=== PATIENT | male | born 1955 | race Caucasian/White ===

== ENCOUNTER 2019-09-09 12:56 | Inpatient (IN) | payer SELFPAY ==
[~2019-09-09] VITALS: Ht 188 cm; Wt 87.5 kg
[2019-09-09] MEDS ORDERED: CEPH500C PO (13:06)
[2019-09-09] MEDS ORDERED: MUPI2OI TOP (13:06)
--- NOTE | 2019-09-09 13:42 | REP ---
Portable chest x-ray: Single view. History: Dyspnea and cough. No comparison study. Findings: The lungs are well inflated and clear. Pleural angles are sharp. Heart is not enlarged. Aorta is somewhat tortuous. Pulmonary vasculature is not increased. Impression: No acute disease. Electronically Signed by Tio Horne MD 09/09/2019 01:33 P
[2019-09-09 13:57] LABS: BASO % 0.2 % (0.0-1.0); EOS % 0.5 % (0.0-3.0); HEMOGLOBIN 13.6 g/dl (13.5-17.5); LYMPH # 0.4 10^3/uL (1.5-5.0); MEAN CORPUSCULAR HEMOGLOBIN 31.1 pg (27.0-33.0); MEAN CORPUSCULAR HGB CONC 34.9 g/dl (32.0-36.5); MONO % 11.9 % (0.0-5.0); NEUTROPHILS # 6.9 10^3/uL (1.5-8.5); NEUTROPHILS % 81.9 % (36.0-66.0); PLATELET COUNT, AUTOMATED 102 10^3/uL (150-450); RED BLOOD COUNT 4.38 10^6/uL (4.30-6.10); WHITE BLOOD COUNT 8.4 10^3/uL (4.0-10.0)
[2019-09-09] MEDS ORDERED: VANCOMYCIN HCL 750 MG, VIAL MATE ADAPTER 1 EACH in D5W 250 ML IV ONE (14:00)
[2019-09-09] MEDS ORDERED: VANCOMYCIN HCL 1,000 MG, VIAL MATE ADAPTER 1 EACH in D5W 250 ML IV ONE (14:00)
[2019-09-09] MEDS ORDERED: VANCOMYCIN HCL 1,750 MG in D5W 250 ML IV ONE (14:00)
[2019-09-09 14:35] LABS: ALBUMIN 3.7 GM/DL (3.2-5.2); ALT/SGPT 26 U/L (12-78); BILIRUBIN,DIRECT 0.4 MG/DL (0.0-0.2); BILIRUBIN,TOTAL 1.3 MG/DL (0.2-1.0); BLOOD UREA NITROGEN 8 MG/DL (7-18); CALCIUM LEVEL 9.1 MG/DL (8.8-10.2); CARBON DIOXIDE LEVEL 29 MEQ/L (21-32); CHLORIDE LEVEL 95 MEQ/L (98-107); CK-MB VALUE MASS < 1.0 NG/ML (<3.6); CPK CREATINE PHOSPHOKINASE 50 U/L (39-308); CREATININE FOR GFR 0.66 MG/DL (0.70-1.30); GLOMERULAR FILTRATION RATE > 60.0 (>49); GLUCOSE, FASTING 219 MG/DL (70-100); NT-PRO BNP 27 PG/ML (<125); POTASSIUM SERUM 3.9 MEQ/L (3.5-5.1); SODIUM LEVEL 132 MEQ/L (136-145); THYROID STIMULATING HORMONE 0.322 uIU/ML (0.358-3.740); TOTAL PROTEIN 7.9 GM/DL (6.4-8.2); TROPONIN I < 0.02 NG/ML (< 0.10)
--- NOTE | 2019-09-09 14:43 | REP ---
LEFT FOOT SERIES: TWO VIEWS. HISTORY: Swelling and redness left foot rule out osteomyelitis. FINDINGS: There is plantar and Achilles calcaneal spurring. There is mild midfoot osteoarthritis. There is moderate arthropathy affecting the first metatarsal phalangeal articulation with subcortical cyst formation, osteophyte formation, joint space narrowing, and sclerosis. Some fragmented spurring is seen. There is mild associated soft-tissue swelling. The findings suggest osteoarthritis or perhaps gouty arthropathy. There is minimal spurring at the IP joint of the great toe as well. No erosive changes are seen. IMPRESSION: Moderate first MTP joint arthropathy question gout versus osteoarthritis. Heel spurs. No acute erosive change. Electronically Signed by Tio Horne MD 09/09/2019 02:56 P
[2019-09-09] MEDS ORDERED: ACETAMINOPHEN 325 MG TAB PO ONE (14:45)
[2019-09-09 15:15] LABS: HEMOGLOBIN A1c 8.7 %
[2019-09-09] MEDS ORDERED: ADACEL/BOOSTRIX VACCINE (DIPHTH/PERTUSS/ACELL/TETANUS)0.5ML SYR (90715) IM ONE (15:30)
[2019-09-09] MEDS ORDERED: DEXTROSE 50% 50 ML SYRINGE IV PRN (17:00)
[2019-09-09] MEDS ORDERED: GLUCAGON FOR INJ 1 MG VIAL (J1610) SC PRN (17:00)
[2019-09-09] MEDS ORDERED: GLUCOSE 4 GM CHEW TABLET PO PRN (17:00)
[2019-09-09] MEDS ORDERED: CEPACOL LOZENGE PO PRN (17:00)
--- NOTE | 2019-09-09 17:43 | PHACANCOPD ---
PHARMACY VANCOMYCIN DOSING Pt Demographics Demographics Patient Age:63 , Weight:87.500 , Gender: male Adjusted Body Weight Date: 09/09/19, Adjusted Body Weight: [84.32] Kg Events Past 24 Hours Events Past 24 Hours: NO: Dialysis, Diuretic Therapy, Change in CrCl, Fever, Elevation in WBC, Pending Diagnostics, Pending Procedures, Other Vancomycin Vancomycin indication: cellulitis Vancomycin Target Ranges: 15-20 mcg/ml Vancomycin Load Y/N: Yes Load Dose Date Time Vancomycin Load Dose: 1.75g Date: 09/09/19 Time:17:00 Vancomycin Dose Date: 09/09/19. Current Vancomycin Dose: [1g iv q8h] Intermittent Dosing?: No Labs Labs Item Value Date Time White Blood Count 8.4 10^3/uL 09/09/19 1336 C-Reactive Protein, Quantitative 11.70 MG/DL H 09/09/19 1336 Micro Microbiology 09/09/19 Respiratory Virus Panel (PCR) (TIMOTHY), Received Pending 09/09/19 Blood Culture, Received Pending 09/09/19 Blood Culture, Received Pending Creatinine Clearance Date:09/09/19. Creatinine Clearance: [136.7ml/min]. Pending Labs vancomycin trough 09/10/19 @14:00 Assessment and Plan Maintaining Current Dose?: Yes Reason for dose change: No Dose Change Pharmacist Note Pharmacist Note Date: 09/09/19. Pharmacist note: Pt is a 63 year old male being treated for cellulitis goal trough 15-20mcg/ml. He has not been treated with vancomycin here at [facility] in the past. The patient received a 1.75g iv vancomycin loading dose in the ER 09/09/19 @17:00. Maintenance therapy will consist of 1g vancomycin IV every 8 hours starting 09/09/19 @23:00. A vancomycin trough is scheduled for @14:00. We will continue to monitor and adjust the dose as needed. EVELINA SOLIZ PHARMACY Sep 09, 2019 17:43
[2019-09-09 17:55] VITALS: BP 154/86
[2019-09-09] MEDS: cefTRIAXone SOD 2 GM in D5W MINI-BAG PLUS 50 ML IV SCH (18:11)
[2019-09-09] MEDS: HumaLOG INSULIN (NovoLOG) PER UNIT SC SCH ×2 (18:29→20:43)
--- NOTE | 2019-09-09 18:44 | HPEPDOC ---
General Date of Admission 09/09/2019 Date of Service: Sep 09, 2019 Chief Complaint The patient is a 63-year-old male admitted with a reason for visit of Cold Symptoms. History of Present Illness 63 year old male had not seen a physician for about 10 years presented to the ED with cough and cold for 2 months chest pain and fluttering in his chest for the same duration and fever form this morning. He also complained left foot redness and pain and a puncture wound at the bottom of the foot which he sustained 1 week ago when he stepped on an unidentified object in his garage when he was walking with only his socks on. He did not pay any attention to it and forgot about it. For the past 2 days he has been feeling worsening of generalized malaise and unwell this morning had fever. Work up in the ED shows that he is diabetic with an A1c of 8.7, platelets at 107, elevated ESR and Elevated CRP, low TSH. He was febrile to 102.4 hypertensive to highest of 244/114, CXR normal, Foot Xray shows Moderate first MTP joint arthropathy question gout versus osteoarthritis. Heel spurs. Patient was admitted for left diabetic foot infection with sepsis. Home Medications Scheduled Cephalexin (Cephalexin) 500 Mg Capsule, 500 MG PO BID, (Reported) Mupirocin (Mupirocin) 22 Gm Oint...g., 1 APPLIC TOP BID, (Reported) APPLY TO FOOT Allergies Coded Allergies: No Known Allergies (Unverified , 09/09/19) Past Medical History Medical History No past medical history Family History Significant Family History: Cancer (mother lung cancer) Social History * Smoker: non-smoker Alcohol: heavy (about 4 beers daily about 2 years ago used to drink more and had to go to alcohol rehab) A-FIB/CHADSVASC A-FIB History Current/History of A-Fib/PAF?: No Review of Systems Constitutional: Reports: Chills, Fever Eyes: Denies: Pain, Vision change ENT: Denies: Head Aches, Ear Pain, Dysphagia Skin: Reports: Lesions (bottom of left foot) Pulmonary: Reports: Dyspnea, Cough, Pleuritic Chest Pain Cardiovascular: Reports: Chest Pain Gastrointestinal: Reports: Abdominal Pain; Denies: Nausea, Vomiting, Diarrhea Genitourinary: Denies: Dysuria, Frequency, Incontinence, Retention Hematologic: Denies: Bruising, Bleeding Excessively Musculoskeletal: Denies: Neck Pain, Back Pain, Joint Pain, Muscle Pain, Spasms Physical Examination General Exam: Positive: Alert, Cooperative, No Acute Distress Eye Exam: Positive: PERRLA, Conjunctiva & lids normal, EOMI; Negative: Sclera icteric ENT Exam: Positive: Atraumatic, Mucous membr. moist/pink, Pharynx Normal Neck Exam: Positive: Supple; Negative: JVD, thyromegaly Chest Exam: Positive: Clear to auscultation, Normal air movement Heart Exam: Positive: Rate Normal, Regular Rhythm, Normal S1, Normal S2; Negative: Murmurs, Rubs Abdomen Exam: Positive: Normal bowel sounds, Soft; Negative: Tenderness, Hepatospenomegaly Extremity Exam: Positive: Tenderness (left foot), Other (redness of the medial aspect of left foot , Puncture wound onth bottom of left foot with surrounding tissue about 1 cm. ); Negative: Clubbing, Cyanosis, Edema Vital Signs Vital Signs Date Time Temp Pulse Resp B/P (MAP) Pulse Ox O2 Delivery O2 Flow Rate FiO2 09/09/19 15:30 118 160/92 (114) 94 Room Air 09/09/19 14:45 101.9 18 Laboratory Data Labs 24H Laboratory Tests 2 09/09/19 13:36: Immature Granulocyte % (Auto) 0.5, Neutrophils (%) (Auto) 81.9H, Lymphocytes (%) (Auto) 5.0L, Monocytes (%) (Auto) 11.9H, Eosinophils (%) (Auto) 0.5, Basophils (%) (Auto) 0.2, Neutrophils # (Auto) 6.9, Lymphocytes # (Auto) 0.4L, Monocytes # (Auto) 1.0H, Eosinophils # (Auto) 0.0, Basophils # (Auto) 0.0, Nucleated Red Blood Cells % (auto) 0.0, Anion Gap 8, Glomerular Filtration Rate > 60.0, Estimated Mean Plasma Glucose 203H, Hemoglobin A1c 8.7, Lactic Acid Level 1.2, Calcium Level 9.1, Total Bilirubin 1.3H, Direct Bilirubin 0.4H, Aspartate Amino Transf (AST/SGOT) 18, Alanine Aminotransferase (ALT/SGPT) 26, Alkaline Phosphatase 95, Total Creatine Kinase 50, Creatine Kinase MB < 1.0, Creatine Kinase MB Relative Index 2.00, Troponin I < 0.02, C-Reactive Protein, Quantitative 11.70H, XW-Mvp-X-Type Natriuretic Peptide 27, Total Protein 7.9, Albumin 3.7, Albumin/Globulin Ratio 0.88L, Thyroid Stimulating Hormone (TSH) 0.322L 09/09/19 15:18: Erythrocyte Sedimentation Rate 66H CBC/BMP Laboratory Tests 09/09/19 13:36 Microbiology Microbiology 09/09/19 Respiratory Virus Panel (PCR) (TIMOTHY), Received Pending 09/09/19 Blood Culture, Received Pending 09/09/19 Blood Culture, Received Pending Assessment/Plan 63 year old male had not seen a physician for about 10 years presented to the ED with cough and cold for 2 months chest pain and fluttering in his chest for the same duration and fever form this morning. He also complained left foot redness and pain and a puncture wound at the bottom of the foot which he sustained 1 week ago when he stepped on an unidentified object in his garage when he was walking with only his socks on. He did not pay any attention to it and forgot about it. For the past 2 days he has been feeling worsening of generalized malaise and unwell this morning had fever. Work up in the ED shows that he is diabetic with an A1c of 8.7, platelets at 107, elevated ESR and Elevated CRP, low TSH. He was febrile to 102.4 hypertensive to highest of 244/114, CXR normal, Foot Xray shows Moderate first MTP joint arthropathy question gout versus osteoarthritis. Heel spurs. Patient was admitted for left diabetic foot infection with sepsis. Sepsis temp 102.4 pulse 126 with foot infection will give vanco and ceftriaxone and metronidazole cultures sent Diabetic foot infection after a puncture wound will give ceftriaxone and vanco and metronidazole. podiatry consulted New diagnosis of diabetes A1c 8.7 FS AC and HS, lispro as per sliding scale, hypoglycemic protocol Hypertension new diagnosis with hypertension urgency will start on lisinopril. Thrombocytopenia will monitor will hold heparin if platelet drops below 100K. Low TSH will check Ft3, Ft4. Plan / VTE VTE Prophylaxis Ordered?: Yes NIXON KHANNA MD Sep 09, 2019 16:22
[2019-09-09 19:35] LABS: CK-MB VALUE MASS < 1.0 NG/ML (<3.6); CPK CREATINE PHOSPHOKINASE 43 U/L (39-308); MB/CK RELATIVE INDEX 2.33 (< OR =4); TROPONIN I < 0.02 NG/ML (< 0.10)
[2019-09-09] MEDS: lisinopriL 10 MG TAB PO SCH (20:41)
[2019-09-09] MEDS: PANTOPRAZOLE 40MG TAB (PROTONIX) PO SCH (20:42)
[2019-09-09] MEDS: CETIRIZINE (ZyrTEC) 10 MG TAB PO SCH (20:42)
[2019-09-09] MEDS: HEPARIN SOD (PORCINE) 5000 UNITS/ML VIAL (J1644 PER 1000UNITS) SC SCH (20:42)
[2019-09-09] MEDS: BENZONATATE 100 MG CAP PO PRN (21:59)
[2019-09-09] MEDS: metroNIDAZOLE (FLAGYL) 500 MG TAB PO SCH (21:59)
[2019-09-09 22:00] VITALS: BP 164/94
[2019-09-09 23:49] VITALS: BP 170/90
[2019-09-09] MEDS: VANCOMYCIN HCL 1,000 MG, VIAL MATE ADAPTER 1 EACH in D5W 250 ML IV SCH (23:56)
[2019-09-10] MEDS: metroNIDAZOLE (FLAGYL) 500 MG TAB PO SCH ×3 (05:40→22:03)
[2019-09-10 06:00] VITALS: BP 147/75
[2019-09-10 06:17] LABS: BASO % 0.3 % (0.0-1.0); EOS # 0.1 10^3/uL (0.0-0.5); EOS % 0.9 % (0.0-3.0); LYMPH # 1.2 10^3/uL (1.5-5.0); LYMPH % 16.1 % (24.0-44.0); MEAN CORPUSCULAR HEMOGLOBIN 31.8 pg (27.0-33.0); MEAN CORPUSCULAR HGB CONC 35.1 g/dl (32.0-36.5); MEAN CORPUSCULAR VOLUME 90.5 fl (80.0-96.0); MONO % 13.9 % (0.0-5.0); NEUTROPHILS # 5.1 10^3/uL (1.5-8.5); NEUTROPHILS % 68.5 % (36.0-66.0); PLATELET COUNT, AUTOMATED 111 10^3/uL (150-450); RED BLOOD COUNT 4.09 10^6/uL (4.30-6.10); WHITE BLOOD COUNT 7.5 10^3/uL (4.0-10.0)
[2019-09-10 06:30] LABS: BLOOD UREA NITROGEN 10 MG/DL (7-18); CALCIUM LEVEL 8.6 MG/DL (8.8-10.2); CARBON DIOXIDE LEVEL 30 MEQ/L (21-32); CHLORIDE LEVEL 96 MEQ/L (98-107); CREATININE FOR GFR 0.68 MG/DL (0.70-1.30); GLOMERULAR FILTRATION RATE > 60.0 (>49); GLUCOSE, FASTING 176 MG/DL (70-100); POTASSIUM SERUM 3.7 MEQ/L (3.5-5.1); SODIUM LEVEL 132 MEQ/L (136-145)
[2019-09-10 06:38] LABS: FREE T3 2.4 PG/ML (2.2-4.0); FREE T4 1.26 NG/DL (0.76-1.46); THYROID STIMULATING HORMONE 1.22 uIU/ML (0.358-3.740)
[2019-09-10] MEDS: VANCOMYCIN HCL 1,000 MG, VIAL MATE ADAPTER 1 EACH in D5W 250 ML IV SCH ×3 (06:54→20:29)
[2019-09-10] MEDS: HEPARIN SOD (PORCINE) 5000 UNITS/ML VIAL (J1644 PER 1000UNITS) SC SCH ×2 (09:42→20:27)
[2019-09-10] MEDS: HumaLOG INSULIN (NovoLOG) PER UNIT SC SCH ×4 (09:43→20:14)
--- NOTE | 2019-09-10 10:13 | IPNPDOC ---
Subjective Date Seen The patient was seen on 09/10/19. Subjective Chief Complaint/HPI Says had a bad night. Cough was really bothering him and could not sleep till 4 am. Also complaining of fluttering of heart and sharp stabbing pain in the chest last night when he was coughing. Objective Physical Examination General Exam: Positive: Alert, Cooperative, No Acute Distress Eye Exam: Positive: PERRLA, Conjunctiva & lids normal, EOMI; Negative: Sclera icteric ENT Exam: Positive: Atraumatic, Mucous membr. moist/pink, Pharynx Normal Neck Exam: Positive: Supple; Negative: JVD, thyromegaly Chest Exam: Positive: Clear to auscultation, Normal air movement Heart Exam: Positive: Rate Normal, Regular Rhythm, Normal S1, Normal S2; Negative: Murmurs, Rubs Abdomen Exam: Positive: Normal bowel sounds, Soft; Negative: Tenderness, Hepatospenomegaly Extremity Exam: Positive: Tenderness (left foot), Other (redness of the medial aspect of left foot , Puncture wound onth bottom of left foot with surrounding tissue about 1 cm. ); Negative: Clubbing, Cyanosis, Edema Assessment /Plan Assessment 63 year old male had not seen a physician for about 10 years presented to the ED with cough and cold for 2 months chest pain and fluttering in his chest for the same duration and fever form this morning. He also complained left foot redness and pain and a puncture wound at the bottom of the foot which he sustained 1 week ago when he stepped on an unidentified object in his garage when he was walking with only his socks on. He did not pay any attention to it and forgot about it. For the past 2 days he has been feeling worsening of generalized malaise and unwell this morning had fever. Work up in the ED shows that he is diabetic with an A1c of 8.7, platelets at 107, elevated ESR and Elevated CRP, low TSH. He was febrile to 102.4 hypertensive to highest of 244/114, CXR normal, Foot Xray shows Moderate first MTP joint arthropathy question gout versus osteoarthritis. Heel spurs. Patient was admitted for left diabetic foot infection with sepsis. Sepsis temp 102.4 pulse 126 with foot infection will give vanco and ceftriaxone and metronidazole cultures sent Diabetic foot infection after a puncture wound will give ceftriaxone and vanco and metronidazole. podiatry consulted New diagnosis of diabetes A1c 8.7 FS AC and HS, lispro as per sliding scale, hypoglycemic protocol Hypertension new diagnosis with hypertension urgency will start on lisinopril. Thrombocytopenia will monitor will hold heparin if platelet drops below 100K. Low TSH will check Ft3, Ft4. Chronic cough for years. Comes once or twice a year this time going on for 2 months dry. CXR no acute finding. could be allergic/ post nasal gtt. will try cetrizine and cough lozenzes. Atypical chest pain off and on for months cardiac enzymes negative EKG sinus tachy will get echo. Alcohol use disorder drinks 4 to 5 beers a day. used to drink more about [address] on serax. thiamine and folate Plan/VTE VTE Prophylaxis Ordered?: Yes VS, I&O, 24H, Fishbone Vital Signs/I&O Vital Signs Date Time Temp Pulse Resp B/P (MAP) Pulse Ox O2 Delivery O2 Flow Rate FiO2 09/10/19 06:00 98.5 98 20 147/75 (99) 97 Room Air I&O- Last 24 Hours up to 6 AM 09/10/19 06:00 Intake Total 1465 ml Output Total 675 ml Balance 790 ml Laboratory Data 24H LABS Laboratory Tests 2 09/09/19 13:36: Immature Granulocyte % (Auto) 0.5, Neutrophils (%) (Auto) 81.9H, Lymphocytes (%) (Auto) 5.0L, Monocytes (%) (Auto) 11.9H, Eosinophils (%) (Auto) 0.5, Basophils (%) (Auto) 0.2, Neutrophils # (Auto) 6.9, Lymphocytes # (Auto) 0.4L, Monocytes # (Auto) 1.0H, Eosinophils # (Auto) 0.0, Basophils # (Auto) 0.0, Nucleated Red Blood Cells % (auto) 0.0, Anion Gap 8, Glomerular Filtration Rate > 60.0, Estimated Mean Plasma Glucose 203H, Hemoglobin A1c 8.7, Lactic Acid Level 1.2, Calcium Level 9.1, Total Bilirubin 1.3H, Direct Bilirubin 0.4H, Aspartate Amino Transf (AST/SGOT) 18, Alanine Aminotransferase (ALT/SGPT) 26, Alkaline Phosp hatase 95, Total Creatine Kinase 50, Creatine Kinase MB < 1.0, Creatine Kinase MB Relative Index 2.00, Troponin I < 0.02, C-Reactive Protein, Quantitative 11.70H, VZ-Mew-I-Type Natriuretic Peptide 27, Total Protein 7.9, Albumin 3.7, Albumin/Globulin Ratio 0.88L, Thyroid Stimulating Hormone (TSH) 0.322L 09/09/19 15:18: Erythrocyte Sedimentation Rate 66H 09/09/19 18:05: Bedside Glucose (Misc Panel) 222H 09/09/19 18:51: Total Creatine Kinase 43, Creatine Kinase MB < 1.0, Creatine Kinase MB Relative Index 2.33, Troponin I < 0.02 09/09/19 19:43: Bedside Glucose (Misc Panel) 234H 09/10/19 05:40: Immature Granulocyte % (Auto) 0.3, Neutrophils (%) (Auto) 68.5H, Lymphocytes (%) (Auto) 16.1L, Monocytes (%) (Auto) 13.9H, Eosinophils (%) (Auto) 0.9, Basophils (%) (Auto) 0.3, Neutrophils # (Auto) 5.1, Lymphocytes # (Auto) 1.2L, Monocytes # (Auto) 1.0H, Eosinophils # (Auto) 0.1, Basophils # (Auto) 0.0, Nucleated Red Blood Cells % (auto) 0.0, Anion Gap 6L, Glomerular Filtration Rate > 60.0, Calcium Level 8.6L, Thyroid Stimulating Hormone (TSH) 1.220, Free Thyroxine 1.26, Free Triiodothyronine 2.4 CBC/BMP Laboratory Tests 09/09/19 13:36 09/10/19 05:40 Microbiology Microbiology 09/09/19 Respiratory Virus Panel (PCR) (TIMOTHY) - Final, Complete 09/09/19 Blood Culture, Received Pending 09/09/19 Blood Culture, Received Pending NIXON KHANNA MD Sep 10, 2019 10:13
[2019-09-10] MEDS ORDERED: THIAMINE 100 MG TAB PO ONE (10:15)
[2019-09-10] MEDS ORDERED: FOLIC ACID 1 MG TAB PO ONE (11:00)
[2019-09-10] MEDS: OXAZEPAM 10 MG CAP PO SCH ×2 (11:04→20:28)
[2019-09-10] MEDS: GLIMEPIRIDE 2 MG TAB PO SCH (11:06)
[2019-09-10 14:00] VITALS: BP 141/84
--- NOTE | 2019-09-10 14:36 | PHACANCOPD ---
PHARMACY VANCOMYCIN DOSING Pt Demographics Demographics Patient Age:63 , Weight:87.500 , Gender: male Adjusted Body Weight Date: 09/09/19, Adjusted Body Weight: [84.32] Kg Events Past 24 Hours Events Past 24 Hours: NO: Dialysis, Diuretic Therapy, Change in CrCl, Fever, Elevation in WBC, Pending Diagnostics, Pending Procedures, Other Vancomycin Vancomycin indication: cellulitis Vancomycin Target Ranges: 15-20 mcg/ml Vancomycin Load Y/N: Yes Load Dose Date Time Vancomycin Load Dose: 1.75g Date: 09/09/19 Time:17:00 Vancomycin Dose Date: 09/09/19. Current Vancomycin Dose: [1g iv q6h] Intermittent Dosing?: No Labs Micro Microbiology 09/10/19 Gram Stain, Received Pending 09/10/19 Wound Culture, Received Pending 09/09/19 Respiratory Virus Panel (PCR) (TIMOTHY) - Final, Complete 09/09/19 Blood Culture - Preliminary, Resulted No growth after 24 hours . All specim... 09/09/19 Blood Culture - Preliminary, Resulted No growth after 24 hours . All specim... Creatinine Clearance Date:09/09/19. Creatinine Clearance: [136.7ml/min]. Pending Labs vancomycin trough 09/10/19 @14:00 Assessment and Plan Maintaining Current Dose?: No Reason for dose change: Trough too low Pharmacist Note Pharmacist Note Date: 09/09/19. Pharmacist note: A trough from 1352 today resulted in a level of 7.2 mcg/dL. With a goal trough of 15-20 mcg/dL, the dose of vancomycin was changed to 1 gram every 6 hours starting at 1500. A second trough was scheduled for 0800 tomorrow. We will continue to monitor and make adjustments as needed. Date: 09/09/19. Pharmacist note: Pt is a 63 year old male being treated for cellulitis goal trough 15-20mcg/ml. He has not been treated with vancomycin here at [facility] in the past. The patient received a 1.75g iv vancomycin loading dose in the ER 09/09/19 @17:00. Maintenance therapy will consist of 1g vancomycin IV every 8 hours starting 09/09/19 @23:00. A vancomycin trough is scheduled for 09/10/19 @14:00. We will continue to monitor and adjust the dose as needed. GIANCARLO BALBUENA PHARMACY Sep 10, 2019 14:36
--- NOTE | 2019-09-10 15:08 | CR ---
DATE OF CONSULTATION: 09/10/2019 REASON FOR CONSULTATION: Left foot infection. Michael Early is a pleasant 63-year-old male who was admitted to [facility] on 09/09/2019 with left foot infection. He states he stepped on a screw at home a few days ago. He did not have much pain with it and put it out of his mind until the foot became more red and sore. He was admitted to the hospital and diagnosed with diabetes, which would explain the numbness to his feet. PAST MEDICAL HISTORY: Significant for newly diagnosed diabetes and hypertension. PAST SURGICAL HISTORY: None. ALLERGIES: None. SOCIAL HISTORY: Denies smoking. Current alcohol use. Vitals are examined: Maximum temperature (T-max) was 102.5, most recent was 98.5. Labs are reviewed. White blood cell count is 7.5, ESR 66, CRP was 11.7. Imaging studies are reviewed: X-rays show no significant pathology in terms of known infection or soft tissue emphysema. Lower extremity examination: Pedal pulses are palpable. There is erythema and edema of the left foot with erythema extending to the proximal and medial arch. There is a wound on the plantar forefoot. There was purulent drainage coming from this wound. ASSESSMENT: 63-year-old diabetic male with puncture wound, cellulitis abscess. PLAN: Local beside incision and drainage was performed. No anesthetic was used due to patient neuropathy. A #15 blade was used to make a stab incision extending the wound proximally. Some purulent drainage was expressed. This was swabbed for culture and Gram stain. Once no further purulence was noted, the site was irrigated with 20 mL of saline solution packed with Iodoform gauze. Continue on empiric antibiotics. Await culture results. Will pack wound twice daily and flush twice daily with the Iodoform.
[2019-09-10] MEDS: cefTRIAXone SOD 2 GM in D5W MINI-BAG PLUS 50 ML IV SCH (17:44)
--- NOTE | 2019-09-10 18:37 | ECGEPIP ---
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
[2019-09-10] MEDS: lisinopriL 10 MG TAB PO SCH (20:28)
[2019-09-10] MEDS: PANTOPRAZOLE 40MG TAB (PROTONIX) PO SCH (20:28)
[2019-09-10] MEDS: ACETAMINOPHEN 500 MG TAB PO PRN (20:29)
[2019-09-10] MEDS: CETIRIZINE (ZyrTEC) 10 MG TAB PO SCH (20:29)
[2019-09-10] MEDS: BENZONATATE 100 MG CAP PO PRN (20:32)
[2019-09-10 22:00] VITALS: BP 140/78
--- NOTE | 2019-09-11 00:48 | ECGEPIP ---
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
[2019-09-11] MEDS: VANCOMYCIN HCL 1,000 MG, VIAL MATE ADAPTER 1 EACH in D5W 250 ML IV SCH ×4 (03:32→21:00)
[2019-09-11] MEDS: metroNIDAZOLE (FLAGYL) 500 MG TAB PO SCH ×3 (05:39→22:53)
[2019-09-11] MEDS: ACETAMINOPHEN 500 MG TAB PO PRN ×2 (05:39→13:42)
[2019-09-11] MEDS: BENZONATATE 100 MG CAP PO PRN ×3 (05:39→22:00)
[2019-09-11 06:00] VITALS: BP 160/82
[2019-09-11 08:07] LABS: BASO % 0.3 % (0.0-1.0); EOS # 0.1 10^3/uL (0.0-0.5); EOS % 0.9 % (0.0-3.0); HEMATOCRIT 38.2 % (42.0-52.0); HEMOGLOBIN 13.5 g/dl (13.5-17.5); LYMPH # 0.4 10^3/uL (1.5-5.0); LYMPH % 5.5 % (24.0-44.0); MEAN CORPUSCULAR HEMOGLOBIN 31.5 pg (27.0-33.0); MEAN CORPUSCULAR HGB CONC 35.3 g/dl (32.0-36.5); MONO # 0.9 10^3/uL (0.0-0.8); MONO % 11.8 % (0.0-5.0); NEUTROPHILS # 6.4 10^3/uL (1.5-8.5); PLATELET COUNT, AUTOMATED 110 10^3/uL (150-450); RED BLOOD COUNT 4.29 10^6/uL (4.30-6.10); WHITE BLOOD COUNT 7.9 10^3/uL (4.0-10.0)
[2019-09-11 08:34] LABS: BLOOD UREA NITROGEN 14 MG/DL (7-18); CALCIUM LEVEL 8.4 MG/DL (8.8-10.2); CARBON DIOXIDE LEVEL 30 MEQ/L (21-32); CHLORIDE LEVEL 98 MEQ/L (98-107); GLOMERULAR FILTRATION RATE > 60.0 (>49); GLUCOSE, FASTING 213 MG/DL (70-100); POTASSIUM SERUM 3.9 MEQ/L (3.5-5.1); SODIUM LEVEL 133 MEQ/L (136-145); VANCOMYCIN LEVEL TROUGH 12.6 UG/ML (10.0-20.0)
[2019-09-11] MEDS: HEPARIN SOD (PORCINE) 5000 UNITS/ML VIAL (J1644 PER 1000UNITS) SC SCH ×2 (09:07→20:59)
[2019-09-11] MEDS: HumaLOG INSULIN (NovoLOG) PER UNIT SC SCH ×4 (09:08→20:57)
[2019-09-11] MEDS: THIAMINE 100 MG TAB PO SCH (09:09)
[2019-09-11] MEDS: FOLIC ACID 1 MG TAB PO SCH (09:09)
[2019-09-11] MEDS: OXAZEPAM 10 MG CAP PO SCH ×2 (09:09→21:03)
[2019-09-11] MEDS: GLIMEPIRIDE 2 MG TAB PO SCH ×2 (09:09→18:21)
--- NOTE | 2019-09-11 10:10 | IPNPDOC ---
Subjective Date Seen The patient was seen on 09/11/19. Subjective Chief Complaint/HPI Had a spike of fever last night. However says had a good night. says his cough is better. the cough lozenges are helping. Denies any chest pain or fluttering. This am he was nauseous and had an episode of vomiting most probably antibiotic related. Objective Physical Examination General Exam: Positive: Alert, Cooperative, No Acute Distress Eye Exam: Positive: PERRLA, Conjunctiva & lids normal, EOMI; Negative: Sclera icteric ENT Exam: Positive: Atraumatic, Mucous membr. moist/pink, Pharynx Normal Neck Exam: Positive: Supple; Negative: JVD, thyromegaly Chest Exam: Positive: Clear to auscultation, Normal air movement Heart Exam: Positive: Rate Normal, Regular Rhythm, Normal S1, Normal S2; Negative: Murmurs, Rubs Abdomen Exam: Positive: Normal bowel sounds, Soft; Negative: Tenderness, Hepatospenomegaly Extremity Exam: Positive: Tenderness (left foot), Other (redness of the medial aspect of left foot , Puncture wound onth bottom of left foot with surrounding tissue about 1 cm. ); Negative: Clubbing, Cyanosis, Edema Assessment /Plan Assessment 63 year old male had not seen a physician for about 10 years presented to the ED with cough and cold for 2 months chest pain and fluttering in his chest for the same duration and fever form this morning. He also complained left foot redness and pain and a puncture wound at the bottom of the foot which he sustained 1 week ago when he stepped on an unidentified object in his garage when he was walking with only his socks on. He did not pay any attention to it and forgot about it. For the past 2 days he has been feeling worsening of generalized malaise and unwell this morning had fever. Work up in the ED shows that he is diabetic with an A1c of 8.7, platelets at 107, elevated ESR and Elevated CRP, low TSH. He was febrile to 102.4 hypertensive to highest of 244/114, CXR normal, Foot Xray shows Moderate first MTP joint arthropathy question gout versus osteoarthritis. Heel spurs. Patient was admitted for left diabetic foot infection with sepsis. Sepsis temp 102.4 pulse 126 with foot infection will give vanco and ceftriaxone and metronidazole Diabetic foot infection after a puncture wound s/p bedside incision and drainage. Now with packing and daily dressiog culture from 09/08/19 group B strep agalactiae, coagulase negative staph and streptococus mitis anaerobic cultures sent. will give ceftriaxone and vanco and metronidazole. MRSA PCR. New diagnosis of diabetes with severe neurppathy. DID not have any sensation during incision and drainage at bed side. A1c 8.7 FS AC and HS, lispro as per sliding scale, hypoglycemic protocol started on glimiperide Hypertension new diagnosis with hypertension urgency on lisinopril. Thrombocytopenia will monitor will hold heparin if platelet drops below 100K. Low TSH will check Ft3, Ft4. Chronic cough for years. Comes once or twice a year this time going on for 2 months dry. CXR no acute finding. could be allergic/ post nasal gtt. will try cetrizine and cough lozenzes. Atypical chest pain off and on for months cardiac enzymes negative EKG sinus tachy will get echo. Alcohol use disorder drinks 4 to 5 beers a day. used to drink more about [address] on serax. thiamine and folate Plan/VTE VTE Prophylaxis Ordered?: Yes VS, I&O, 24H, Fishbone Vital Signs/I&O Vital Signs Date Time Temp Pulse Resp B/P (MAP) Pulse Ox O2 Delivery O2 Flow Rate FiO2 09/11/19 06:00 99.6 107 20 160/82 (108) 94 Room Air I&O- Last 24 Hours up to 6 AM 09/11/19 06:00 Intake Total 1160 ml Output Total 2100 ml Balance -940 ml Laboratory Data 24H LABS Laboratory Tests 2 09/10/19 11:52: Bedside Glucose (Misc Panel) 220H 09/10/19 13:52: Vancomycin Level Trough 7.2L 09/10/19 16:25: Bedside Glucose (Misc Panel) 215H 09/10/19 20:11: Bedside Glucose (Misc Panel) 188H 09/11/19 05:39: Bedside Glucose (Misc Panel) 256H 09/11/19 07:47: Immature Granulocyte % (Auto) 0.5, Neutrophils (%) (Auto) 81.0H, Lymphocytes (%) (Auto) 5.5L, Monocytes (%) (Auto) 11.8H, Eosinophils (%) (Auto) 0.9, Basophils (%) (Auto) 0.3, Neutrophils # (Auto) 6.4, Lymphocytes # (Auto) 0.4L, Monocytes # (Auto) 0.9H, Eosinophils # (Auto) 0.1, Basophils # (Auto) 0.0, Nucleated Red Blood Cells % (auto) 0.0, Anion Gap 5L, Glomerular Filtration Rate > 60.0, Calcium Level 8.4L, Vancomycin Level Trough 12.6 CBC/BMP Laboratory Tests 09/11/19 07:47 Microbiology Microbiology 09/10/19 Gram Stain - Final, Resulted 09/10/19 Wound Culture - Preliminary, Resulted Strep Agalactiae Group B 09/09/19 Respiratory Virus Panel (PCR) (TIMOTHY) - Final, Complete 09/09/19 Blood Culture - Preliminary, Resulted No growth after 24 hours . All specim... 09/09/19 Blood Culture - Preliminary, Resulted No growth after 24 hours . All specim... NIXON KHANNA MD Sep 11, 2019 10:10
[2019-09-11 14:00] VITALS: BP 155/84
[2019-09-11] MEDS: cefTRIAXone SOD 2 GM in D5W MINI-BAG PLUS 50 ML IV SCH (18:21)
[2019-09-11] MEDS ORDERED: LORazepam 2 MG TAB PO PRN (20:45)
[2019-09-11] MEDS ORDERED: ONDANSETRON 4MG/2ML VIAL (J2405) IV ONE (20:45)
[2019-09-11] MEDS ORDERED: IBUPROFEN 600 MG TAB PO ONE (20:45)
[2019-09-11 21:00] VITALS: BP 160/80
[2019-09-11] MEDS: PANTOPRAZOLE 40MG TAB (PROTONIX) PO SCH (21:00)
[2019-09-11] MEDS: lisinopriL 10 MG TAB PO SCH (21:02)
[2019-09-11] MEDS: CETIRIZINE (ZyrTEC) 10 MG TAB PO SCH (21:03)
[2019-09-11 22:00] VITALS: BP 160/88
[2019-09-11 22:18] VITALS: BP 134/70
[2019-09-12] MEDS: VANCOMYCIN HCL 1,000 MG, VIAL MATE ADAPTER 1 EACH in D5W 250 ML IV SCH ×4 (02:36→21:24)
[2019-09-12 05:00] VITALS: BP 140/78
[2019-09-12] MEDS: metroNIDAZOLE (FLAGYL) 500 MG TAB PO SCH ×3 (05:26→21:26)
[2019-09-12 06:00] VITALS: BP 140/78
[2019-09-12] MEDS: BENZONATATE 100 MG CAP PO PRN ×3 (06:02→21:27)
[2019-09-12 06:50] LABS: BASO % 0.3 % (0.0-1.0); EOS # 0.1 10^3/uL (0.0-0.5); EOS % 1.4 % (0.0-3.0); HEMATOCRIT 39.2 % (42.0-52.0); HEMOGLOBIN 13.6 g/dl (13.5-17.5); LYMPH # 0.6 10^3/uL (1.5-5.0); LYMPH % 17.1 % (24.0-44.0); MEAN CORPUSCULAR HEMOGLOBIN 30.8 pg (27.0-33.0); MEAN CORPUSCULAR HGB CONC 34.7 g/dl (32.0-36.5); MEAN CORPUSCULAR VOLUME 88.9 fl (80.0-96.0); MONO # 0.7 10^3/uL (0.0-0.8); MONO % 17.7 % (0.0-5.0); NEUTROPHILS # 2.3 10^3/uL (1.5-8.5); NEUTROPHILS % 63.2 % (36.0-66.0); PLATELET COUNT, AUTOMATED 106 10^3/uL (150-450); RED BLOOD COUNT 4.41 10^6/uL (4.30-6.10); WHITE BLOOD COUNT 3.7 10^3/uL (4.0-10.0)
[2019-09-12 07:13] LABS: BLOOD UREA NITROGEN 17 MG/DL (7-18); C REACTIVE PROTEIN QUANTITATIV 8.94 MG/DL (0.00-0.30); CALCIUM LEVEL 8.7 MG/DL (8.8-10.2); CARBON DIOXIDE LEVEL 29 MEQ/L (21-32); CHLORIDE LEVEL 100 MEQ/L (98-107); CREATININE FOR GFR 0.76 MG/DL (0.70-1.30); GLOMERULAR FILTRATION RATE > 60.0 (>49); GLUCOSE, FASTING 169 MG/DL (70-100); POTASSIUM SERUM 3.4 MEQ/L (3.5-5.1); SODIUM LEVEL 135 MEQ/L (136-145)
--- NOTE | 2019-09-12 07:32 | ECHO ---
DATE OF PROCEDURE: 09/10/2019 PATIENT LOCATION: Room 4227 REASON FOR THE STUDY: Shortness of breath. 2D MEASUREMENTS: IVS: 0.9 cm LV: 5.3 cm LVPW: 1.0 cm LA: 4.1 cm Aorta: 3.1 cm RV: 3.5 cm IVC: 1.6 cm DOPPLER MEASUREMENTS: Peak velocity across the aortic valve: 1.7 meters per second Peak velocity across the LVOT: 1.2 meters per second Peak gradient across the aortic valve: 11 mmHg Mean gradient across the aortic valve: 6 mmHg Mitral E: 0.7, Mitral A: 0.9 with a ratio of 0.8 2D COMMENTS: 1. Normal left ventricular size, wall thickness, and normal global left ventricular systolic function. The estimated left ventricular systolic ejection fraction is 60-65%. 2. Mildly enlarged left atrium. Normal right atrium and right ventricle. 3. The atrial septum appeared to be normal without evidence of defect or shunt. 4. Normal aortic root. 5. No pericardial effusion seen. 6. Mildly calcified aortic valve with normal leaflet excursion. Normal mitral valve, tricuspid valve, and pulmonic valve. The proximal pulmonary artery branches also appeared to be normal. 7. The inferior vena cava was normal in size, central venous pressure is most likely normal. DOPPLER: It detects trace aortic regurgitation, mild mitral regurgitation, trace tricuspid regurgitation, and trace pulmonic regurgitation. The pulmonary artery systolic pressure appeared to be normal. Abnormal relaxation pattern was noted across the mitral valve leaflets as well as the mitral valve annulus consistent with features of grade 1 left ventricular diastolic dysfunction. IMPRESSION: 1. Normal global left ventricular systolic function. There are some features of left ventricular diastolic dysfunction manifested by abnormal relaxation. 2. Aortic valve sclerosis with trace aortic regurgitation and trivial aortic stenosis. 3. Mild mitral regurgitation with a mildly enlarged left atrium at 4.1 cm. 4. Trace tricuspid regurgitation. 5. Trace pulmonic regurgitation. 6. A sigmoid appearance of the basal ventricular septum was noted, a benign finding. MTDD
--- NOTE | 2019-09-12 08:30 | IPNPDOC ---
Subjective Date Seen The patient was seen on 09/12/19. Subjective Chief Complaint/HPI Again had a spike of temp last night with a T max of 101.4 with some nausea. Feeling much better today. had good breakfast. his cough is less. SUgars better controlled. Objective Physical Examination General Exam: Positive: Alert, Cooperative, No Acute Distress Eye Exam: Positive: PERRLA, Conjunctiva & lids normal, EOMI; Negative: Sclera icteric ENT Exam: Positive: Atraumatic, Mucous membr. moist/pink, Pharynx Normal Neck Exam: Positive: Supple; Negative: JVD, thyromegaly Chest Exam: Positive: Clear to auscultation, Normal air movement Heart Exam: Positive: Rate Normal, Regular Rhythm, Normal S1, Normal S2; Negative: Murmurs, Rubs Abdomen Exam: Positive: Normal bowel sounds, Soft; Negative: Tenderness, Hepatospenomegaly Extremity Exam: Positive: Other (left foot planter aspect with puncture wound s/p debridement and removal of surrounding tissues and deeper infected tissue. In surgical dressing.); Negative: Clubbing, Cyanosis, Edema Assessment /Plan Assessment 63 year old male had not seen a physician for about 10 years presented to the ED with cough and cold for 2 months chest pain and fluttering in his chest for the same duration and fever form this morning. He also complained left foot redness and pain and a puncture wound at the bottom of the foot which he sustained 1 w [place] ago when he stepped on an unidentified object in his garage when he was walking with only his socks on. He did not pay any attention to it and forgot about it. For the past 2 days he has been feeling worsening of generalized malaise and unwell this morning had fever. Work up in the ED shows that he is diabetic with an A1c of 8.7, platelets at 107, elevated ESR and Elevated CRP, low TSH. He was febrile to 102.4 hypertensive to highest of 244/114, CXR normal, Foot Xray shows Moderate first MTP joint arthropathy question gout versus osteoarthritis. Heel spurs. Patient was admitted for left diabetic foot infection with sepsis. Sepsis temp 102.4 pulse 126 with foot infection will give vanco and ceftriaxone and metronidazole Diabetic foot infection after a puncture wound s/p bedside incision and drainage. Now with packing and daily dressing culture from 3/18/20 group B strep agalactiae, coagulase negative staph aureus and streptococus mitis Culture after incision and drainage staph aureus, group B streptococci. anaerobic cultures sent. will give ceftriaxone and vanco and metronidazole. MRSA PCR is negative. New diagnosis of diabetes with severe neurppathy. DID not have any sensation during incision and drainage at bed side. A1c 8.7 FS AC and HS, lispro as per sliding scale, hypoglycemic protocol started on glimiperide Hypertension new diagnosis with hypertension urgency on lisinopril. Thrombocytopenia will monitor will hold heparin if platelet drops below 100K. Low TSH will check Ft3, Ft4. Chronic cough for years. Comes once or twice a year this time going on for 2 months dry. CXR no acute finding. could be allergic/ post nasal gtt. will try cetrizine and cough lozenzes. Atypical chest pain off and on for months cardiac enzymes negative EKG sinus tachy will get echo. Alcohol use disorder drinks 4 to 5 beers a day. used to drink more about [address] on serax. thiamine and folate Plan/VTE VTE Prophylaxis Ordered?: Yes VS, I&O, 24H, Fishbone Vital Signs/I&O Vital Signs Date Time Temp Pulse Resp B/P (MAP) Pulse Ox O2 Delivery O2 Flow Rate FiO2 09/12/19 06:00 97.9 72 16 140/78 (98) 99 Room Air I&O- Last 24 Hours up to 6 AM 09/12/19 06:00 Intake Total 1720 ml Output Total 1450 ml Balance 270 ml Laboratory Data 24H LABS Laboratory Tests 2 09/11/19 11:33: Bedside Glucose (Misc Panel) 239H 09/11/19 13:41: Methicillin-Resist S.aureus DNA PCR NOT DETECTED 09/11/19 16:46: Bedside Glucose (Misc Panel) 217H 09/11/19 20:16: Bedside Glucose (Misc Panel) 110 09/12/19 06:25: Anion Gap 6L, Glomerular Filtration Rate > 60.0, Calcium Level 8.7L, C-Reactive Protein, Quantitative 8.94H 09/12/19 06:26: Immature Granulocyte % (Auto) 0.3, Neutrophils (%) (Auto) 63.2, Lymphocytes (%) (Auto) 17.1L, Monocytes (%) (Auto) 17.7H, Eosinophils (%) (Auto) 1.4, Basophils (%) (Auto) 0.3, Neutrophils # (Auto) 2.3, Lymphocytes # (Auto) 0.6L, Monocytes # (Auto) 0.7, Eosinophils # (Auto) 0.1, Basophils # (Auto) 0.0, Nucleated Red Blood Cells % (auto) 0.0 CBC/BMP Laboratory Tests 09/12/19 06:25 09/12/19 06:26 Microbiology Microbiology 09/10/19 Gram Stain - Final, Resulted 09/10/19 Wound Culture - Preliminary, Resulted Strep Agalactiae Group B Staphylococcus Aureus 09/09/19 Respiratory Virus Panel (PCR) (TIMOTHY) - Final, Complete 09/09/19 Blood Culture - Preliminary, Resulted No Growth after 48 hours. All Specime... 09/09/19 Blood Culture - Preliminary, Resulted No Growth after 48 hours. All Specime... NIXON KHANNA MD Sep 12, 2019 08:30
[2019-09-12] MEDS: HEPARIN SOD (PORCINE) 5000 UNITS/ML VIAL (J1644 PER 1000UNITS) SC SCH ×2 (08:40→21:25)
[2019-09-12] MEDS: FOLIC ACID 1 MG TAB PO SCH (08:41)
[2019-09-12] MEDS: HumaLOG INSULIN (NovoLOG) PER UNIT SC SCH ×4 (08:41→20:24)
[2019-09-12] MEDS: OXAZEPAM 10 MG CAP PO SCH ×2 (08:42→21:26)
[2019-09-12] MEDS: GLIMEPIRIDE 2 MG TAB PO SCH ×2 (08:42→17:44)
[2019-09-12] MEDS: THIAMINE 100 MG TAB PO SCH (08:42)
[2019-09-12 13:00] VITALS: BP 144/81
[2019-09-12 14:00] VITALS: BP 144/81
[2019-09-12] MEDS ORDERED: IBUPROFEN 600 MG TAB PO PRN (15:30)
[2019-09-12] MEDS: cefTRIAXone SOD 2 GM in D5W MINI-BAG PLUS 50 ML IV SCH (17:44)
[2019-09-12 21:00] VITALS: BP 120/70
[2019-09-12] MEDS: lisinopriL 10 MG TAB PO SCH (21:00)
[2019-09-12] MEDS: CETIRIZINE (ZyrTEC) 10 MG TAB PO SCH (21:26)
[2019-09-12] MEDS: PANTOPRAZOLE 40MG TAB (PROTONIX) PO SCH (21:26)
[2019-09-12 22:00] VITALS: BP 120/70
[2019-09-13] MEDS: VANCOMYCIN HCL 1,000 MG, VIAL MATE ADAPTER 1 EACH in D5W 250 ML IV SCH (03:13)
[2019-09-13] MEDS: metroNIDAZOLE (FLAGYL) 500 MG TAB PO SCH ×3 (05:53→22:04)
[2019-09-13] MEDS: BENZONATATE 100 MG CAP PO PRN ×2 (05:54→16:47)
[2019-09-13 06:00] VITALS: BP 142/78
[2019-09-13 08:28] LABS: BASO % 0.4 % (0.0-1.0); EOS # 0.1 10^3/uL (0.0-0.5); EOS % 2.6 % (0.0-3.0); HEMATOCRIT 35.3 % (42.0-52.0); HEMOGLOBIN 12.4 g/dl (13.5-17.5); LYMPH # 0.9 10^3/uL (1.5-5.0); MEAN CORPUSCULAR HEMOGLOBIN 31.1 pg (27.0-33.0); MEAN CORPUSCULAR HGB CONC 35.1 g/dl (32.0-36.5); MEAN CORPUSCULAR VOLUME 88.5 fl (80.0-96.0); MONO # 0.9 10^3/uL (0.0-0.8); MONO % 18.8 % (0.0-5.0); NEUTROPHILS # 2.8 10^3/uL (1.5-8.5); NEUTROPHILS % 58.8 % (36.0-66.0); PLATELET COUNT, AUTOMATED 118 10^3/uL (150-450); RED BLOOD COUNT 3.99 10^6/uL (4.30-6.10); WHITE BLOOD COUNT 4.7 10^3/uL (4.0-10.0)
[2019-09-13 08:43] LABS: BLOOD UREA NITROGEN 16 MG/DL (7-18); CALCIUM LEVEL 8.5 MG/DL (8.8-10.2); CARBON DIOXIDE LEVEL 30 MEQ/L (21-32); CHLORIDE LEVEL 103 MEQ/L (98-107); CREATININE FOR GFR 0.62 MG/DL (0.70-1.30); GLOMERULAR FILTRATION RATE > 60.0 (>49); GLUCOSE, FASTING 164 MG/DL (70-100); POTASSIUM SERUM 3.7 MEQ/L (3.5-5.1); SODIUM LEVEL 136 MEQ/L (136-145)
[2019-09-13] MEDS: HEPARIN SOD (PORCINE) 5000 UNITS/ML VIAL (J1644 PER 1000UNITS) SC SCH ×2 (09:20→22:05)
[2019-09-13] MEDS: THIAMINE 100 MG TAB PO SCH (09:21)
[2019-09-13] MEDS: FOLIC ACID 1 MG TAB PO SCH (09:21)
[2019-09-13] MEDS: HumaLOG INSULIN (NovoLOG) PER UNIT SC SCH ×4 (09:21→21:00)
[2019-09-13] MEDS: GLIMEPIRIDE 2 MG TAB PO SCH ×2 (09:21→18:20)
[2019-09-13] MEDS: OXAZEPAM 10 MG CAP PO SCH (09:21)
--- NOTE | 2019-09-13 11:30 | IPNPDOC ---
Subjective Date Seen The patient was seen on 09/13/19. Subjective Chief Complaint/HPI Feeling better. However says the cough continues to bother him. He also complains of difficulty swallowing and sometimes choking on food and pills. No fever last night. Objective Physical Examination General Exam: Positive: Alert, Cooperative, No Acute Distress Eye Exam: Positive: PERRLA, Conjunctiva & lids normal, EOMI; Negative: Sclera icteric ENT Exam: Positive: Atraumatic, Mucous membr. moist/pink, Pharynx Normal Neck Exam: Positive: Supple; Negative: JVD, thyromegaly Chest Exam: Positive: Clear to auscultation, Normal air movement Heart Exam: Positive: Rate Normal, Regular Rhythm, Normal S1, Normal S2; Negative: Murmurs, Rubs Abdomen Exam: Positive: Normal bowel sounds, Soft; Negative: Tenderness, Hepatospenomegaly Extremity Exam: Positive: Other (left foot planter aspect with puncture wound s/p debridement and removal of surrounding tissues and deeper infected tissue. In surgical dressing.); Negative: Clubbing, Cyanosis, Edema Assessment /Plan Assessment 63 year old male had not seen a physician for about 10 years presented to the ED with cough and cold for 2 months chest pain and fluttering in his chest for the same duration and fever form this morning. He also complained left foot redness and pain and a puncture wound at the bottom of the foot which he sustained 1 w [place] ago when he stepped on an unidentified object in his garage when he was walking with only his socks on. He did not pay any attention to it and forgot about it. For the past 2 days he has been feeling worsening of generalized malaise and unwell this morning had fever. Work up in the ED shows that he is diabetic with an A1c of 8.7, platelets at 107, elevated ESR and Elevated CRP, low TSH. He was febrile to 102.4 hypertensive to highest of 244/114, CXR normal, Foot Xray shows Moderate first MTP joint arthropathy question gout versus osteoarthritis. Heel spurs. Patient was admitted for left diabetic foot infection with sepsis. Sepsis temp 102.4 pulse 126 with foot infection will give vanco and ceftriaxone and metronidazole Diabetic foot infection after a puncture wound s/p bedside incision and drainage. Now with packing and daily dressing culture from 09/08/19 group B strep agalactiae, coagulase negative staph aureus and streptococus mitis Culture after incision and drainage staph aureus, group B streptococci. anaerobic cultures sent. ceftriaxone and metronidazole. MRSA PCR is negative. New diagnosis of diabetes with severe neurppathy. DID not have any sensation during incision and drainage at bed side. A1c 8.7 FS AC and HS, lispro as per sliding scale, hypoglycemic protocol started on glimiperide Hypertension new diagnosis with hypertension urgency on lisinopril. Thrombocytopenia will monitor will hold heparin if platelet drops below 100K. Low TSH will check Ft3, Ft4. Chronic cough for years. Comes once or twice a year this time going on for 2 months dry. CXR no acute finding. could be allergic/ post nasal gtt. will try cetrizine and cough lozenzes. Atypical chest pain off and on for months cardiac enzymes negative EKG sinus tachy will get echo. Alcohol use disorder drinks 4 to 5 beers a day. used to drink more about [address] on serax. thiamine and folate Plan/VTE VTE Prophylaxis Ordered?: Yes VS, I&O, 24H, [facility] Vital Signs/I&O Vital Signs Date Time Temp Pulse Resp B/P (MAP) Pulse Ox O2 Delivery O2 Flow Rate FiO2 09/13/19 06:00 97.9 75 16 142/78 (99) 98 Room Air I&O- Last 24 Hours up to 6 AM 09/13/19 06:00 Intake Total 1850 ml Output Total 1400 ml Balance 450 ml Laboratory Data 24H LABS Laboratory Tests 2 09/12/19 11:44: Bedside Glucose (Misc Panel) 170H 09/12/19 16:34: Bedside Glucose (Misc Panel) 162H 09/12/19 20:07: Bedside Glucose (Misc Panel) 150H 09/13/19 06:13: Bedside Glucose (Misc Panel) 132H 09/13/19 08:12: Immature Granulocyte % (Auto) 0.4, Neutrophils (%) (Auto) 58.8, Lymphocytes (%) (Auto) 19.0L, Monocytes (%) (Auto) 18.8H, Eosinophils (%) (Auto) 2.6, Basophils (%) (Auto) 0.4, Neutrophils # (Auto) 2.8, Lymphocytes # (Auto) 0.9L, Monocytes # (Auto) 0.9H, Eosinophils # (Auto) 0.1, Basophils # (Auto) 0.0, Nucleated Red Blo od Cells % (auto) 0.0, Anion Gap 3L, Glomerular Filtration Rate > 60.0, Calcium Level 8.5L CBC/BMP Laboratory Tests 09/13/19 08:12 Microbiology Microbiology 09/10/19 Gram Stain - Final, Resulted 09/10/19 Wound Culture - Preliminary, Resulted Strep Agalactiae Group B Staphylococcus Aureus Streptococcus Mitis 09/09/19 Respiratory Virus Panel (PCR) (TIMOTHY) - Final, Complete 09/09/19 Blood Culture - Preliminary, Resulted No Growth after 72 hours. All specime... 09/09/19 Blood Culture - Preliminary, Resulted No Growth after 72 hours. All specime... NIXON KHANNA MD Sep 13, 2019 11:30
[2019-09-13 14:00] VITALS: BP 135/65
[2019-09-13] MEDS ORDERED: LISI10TA4 PO (15:12)
[2019-09-13] MEDS ORDERED: AMAR1TAB5 PO (15:12)
[2019-09-13] MEDS: ACETAMINOPHEN 500 MG TAB PO PRN (16:47)
[2019-09-13] MEDS: cefTRIAXone SOD 2 GM in D5W MINI-BAG PLUS 50 ML IV SCH (18:19)
[2019-09-13 21:00] VITALS: BP 132/70
[2019-09-13] MEDS: lisinopriL 10 MG TAB PO SCH (21:00)
[2019-09-13 22:00] VITALS: BP 132/70
[2019-09-13] MEDS: CETIRIZINE (ZyrTEC) 10 MG TAB PO SCH (22:04)
[2019-09-13] MEDS: PANTOPRAZOLE 40MG TAB (PROTONIX) PO SCH (22:04)
[2019-09-13 22:32] VITALS: BP 138/72
[2019-09-14 05:52] LABS: BASO % 0.2 % (0.0-1.0); EOS # 0.1 10^3/uL (0.0-0.5); EOS % 2.3 % (0.0-3.0); HEMATOCRIT 35.1 % (42.0-52.0); HEMOGLOBIN 12.1 g/dl (13.5-17.5); LYMPH # 1.2 10^3/uL (1.5-5.0); LYMPH % 27.7 % (24.0-44.0); MEAN CORPUSCULAR HEMOGLOBIN 30.8 pg (27.0-33.0); MEAN CORPUSCULAR HGB CONC 34.5 g/dl (32.0-36.5); MEAN CORPUSCULAR VOLUME 89.3 fl (80.0-96.0); MONO # 0.7 10^3/uL (0.0-0.8); MONO % 17.1 % (0.0-5.0); NEUTROPHILS # 2.2 10^3/uL (1.5-8.5); NEUTROPHILS % 52.5 % (36.0-66.0); PLATELET COUNT, AUTOMATED 125 10^3/uL (150-450); RED BLOOD COUNT 3.93 10^6/uL (4.30-6.10); WHITE BLOOD COUNT 4.3 10^3/uL (4.0-10.0)
[2019-09-14] MEDS: metroNIDAZOLE (FLAGYL) 500 MG TAB PO SCH (05:53)
[2019-09-14] MEDS: BENZONATATE 100 MG CAP PO PRN (05:57)
[2019-09-14 06:00] VITALS: BP 146/89
[2019-09-14 06:18] LABS: BLOOD UREA NITROGEN 14 MG/DL (7-18); CALCIUM LEVEL 8.6 MG/DL (8.8-10.2); CARBON DIOXIDE LEVEL 33 MEQ/L (21-32); CHLORIDE LEVEL 104 MEQ/L (98-107); CREATININE FOR GFR 0.61 MG/DL (0.70-1.30); GLOMERULAR FILTRATION RATE > 60.0 (>49); GLUCOSE, FASTING 128 MG/DL (70-100); POTASSIUM SERUM 3.7 MEQ/L (3.5-5.1); SODIUM LEVEL 138 MEQ/L (136-145)
[2019-09-14] MEDS: FOLIC ACID 1 MG TAB PO SCH (08:52)
[2019-09-14] MEDS: THIAMINE 100 MG TAB PO SCH (08:52)
[2019-09-14] MEDS: GLIMEPIRIDE 2 MG TAB PO SCH (08:52)
[2019-09-14] MEDS: HEPARIN SOD (PORCINE) 5000 UNITS/ML VIAL (J1644 PER 1000UNITS) SC SCH (08:53)
[2019-09-14] MEDS: HumaLOG INSULIN (NovoLOG) PER UNIT SC SCH (08:53)
[2019-09-14] MEDS: OXAZEPAM 10 MG CAP PO SCH (08:53)
[2019-09-14] MEDS ORDERED: MULTCAP PO (09:10)
[2019-09-14] MEDS ORDERED: THIA100TA PO (09:10)
[2019-09-14] MEDS ORDERED: FOLI1TAB11 PO (09:10)
[2019-09-14] MEDS ORDERED: OMEP40CA97 PO (09:10)
[2019-09-14] MEDS ORDERED: TESS100C PO (12:30)
[2019-09-14] MEDS ORDERED: FLAG500T PO (12:39)
--- NOTE | 2019-09-14 12:58 | DS.PDOC ---
Discharge Summary General Date of Admission Sep 09, 2019 at 16:52 Date of Discharge 09/14/2019 Discharge Summary PROCEDURES PERFORMED DURING STAY: [None]. ADMITTING DIAGNOSES / DISCHARGE DIAGNOSES: s/p Sepsis - Likely 2/2 diabetic foot infection - likely 2/2 puncture wound New onset DM2 with Neuropathy HTN, new diagnosis Thrombocytopenia - possibly 2/2 EtOH s/p Low TSH Chronic cough - could be allergic / post nasal s/p Atypical chest pain Alcohol use disorder DVT prophylaxis COMPLICATIONS/CHIEF COMPLAINT: Left foot infection / HTN / Elevated Glucose HISTORY OF PRESENT ILLNESS: Patient is a 63 year old male with no significant PMHx who has not seen any providers in 10 years, had presented to the ER with complaitns of cough / fluttering / fevers since 2 months. Patient reported that he had left foot redness / pain since he stepped on object in the garage. Patient was admitted to the hospitalist service for further evaluation / treatment. HOSPITAL COURSE: s/p Sepsis - Likely 2/2 diabetic foot infection - likely 2/2 puncture wound - Clinically reports improvement - Dressing intact and clean - MRSA 09/10: Negative - Wound culture 09/09: Strep Group B, Strep Mitis, Staph aureus - s/p bedside incision and drainage with Dr. Henderson - c/w wound dressing as ordered - Will c/w Keflex + Flagyl on discharge; Will DC Ceftriaxone and Flagyl; s/p Vancomycin New onset DM2 with Neuropathy - A1c 8.7 - c/w ISS and Glimepiride HTN, new diagnosis - c/w lisinopril Thrombocytopenia - possibly 2/2 EtOH - Remains stable - No evidence of bleeding - Will have outpatient follow up with PCP s/p Low TSH - Repeat normalized Chronic cough - could be allergic / post nasal - Reports cough for years - CXR 09/08: No acute disease. - Will c/w cough medications for now - Outpatient follow up with PCP s/p Atypical chest pain Alcohol use disorder - Reports drinking 4 to 5 beers a day - Advise abstaining from alcohol consumption - s/p Serax - c/w Thiamine, Folate, MVI DVT prophylaxis - c/w TEDs/Sequentials DISCHARGE MEDICATIONS: Please see below. ALLERGIES: Please see below. PHYSICAL EXAMINATION ON DISCHARGE: Vitals (See below) General: Lying in bed, no acute distress, comfortable, AAOx3 HEENT: NC, AT CVS: +S1S2 Lungs: Fair air entry b/l, no appreciable wheezing / rhonchi / rales Abdomen: Soft, ND, NT Extremities: Left foot dressing in place, - Edema, - Calf tenderness LABORATORY DATA: Please see below. ACTIVITY: [As tolerated]. DISCHARGE PLAN: Follow-up with primary care provider within the next 7 days Remain compliant with treatment plan and medications Return to the ER if you experience symptoms DISPOSITION: Home DISCHARGE CONDITION: [Stable]. TIME SPENT ON DISCHARGE: 35 minutes Vital Signs/I&Os Vital Signs Date Time Temp Pulse Resp B/P (MAP) Pulse Ox O2 Delivery O2 Flow Rate FiO2 09/14/19 06:00 98.2 73 18 146/89 (108) 97 Room Air I&O- Last 24 Hours up to 6 AM 09/14/19 05:59 Intake Total 1242 ml Output Total 1425 ml Balance -183 ml Laboratory Data Labs 24H Laboratory Tests 2 09/13/19 16:44: Bedside Glucose (Misc Panel) 118H 09/13/19 20:21: Bedside Glucose (Misc Panel) 173H 09/14/19 05:30: Immature Granulocyte % (Auto) 0.2, Neutrophils (%) (Auto) 52.5, Lymphocytes (%) (Auto) 27.7, Monocytes (%) (Auto) 17.1H, Eosinophils (%) (Auto) 2.3, Basophils (%) (Auto) 0.2, Neutrophils # (Auto) 2.2, Lymphocytes # (Auto) 1.2L, Monocytes # (Auto) 0.7, Eosinophils # (Auto) 0.1, Basophils # (Auto) 0.0, Nucleated Red Blood Cells % (auto) 0.0, Anion Gap 1L, Glomerular Filtration Rate > 60.0, Calcium Level 8.6L 09/14/19 11:34: Bedside Glucose (Misc Panel) 157H CBC/BMP Laboratory Tests 09/14/19 05:30 FSBS Laboratory Tests Test 09/13/19 16:44 09/13/19 20:21 09/14/19 11:34 Range/Units Bedside Glucose (Misc Panel) 118 173 157 80-115 MG/DL Microbiology Microbiology 09/10/19 Gram Stain - Final, Complete 09/10/19 Wound Culture - Final, Complete Strep Agalactiae Group B Staphylococcus Aureus Streptococcus Mitis 09/09/19 Respiratory Virus Panel (PCR) (TIMOTHY) - Final, Complete 09/09/19 Blood Culture - Preliminary, Resulted No Growth after 72 hours. All specime... 09/09/19 Blood Culture - Preliminary, Resulted No Growth after 72 hours. All specime... Discharge Medications Scheduled Cephalexin (Cephalexin) 500 Mg Capsule, 500 MG PO BID, (Reported) Folic Acid (Folic Acid) 1 Mg Tablet, 1 MG PO DAILY Glimepiride (Amaryl) 2 Mg Tablet, 2 MG PO BID@0730,1730 Lisinopril (Lisinopril) 10 Mg Tablet, 10 MG PO DAILY Multivitamin (Multivitamins) 1 Each Capsule, 1 CAP PO DAILY Omeprazole (Omeprazole) 40 Mg Capsule.dr, 1 CAP PO DAILY Thiamine Hcl (Vitamin B-1) 100 Mg Tablet, 100 MG PO DAILY Allergies Coded Allergies: No Known Allergies (Unverified , 09/09/19) GUS VALERIO MD Sep 14, 2019 12:58
== END 2019-09-14 12:28 | disposition home or self-care (01) | DRG 720 ==
LOC: M ED 12:56 → M ED INP 16:52 → ENRESERV 17:03 → M MSPAV 17:52
PROVIDERS: ADMIT Internal Medicine Nephrology; ATTEND Internal Medicine
PROC: 0Y9N0ZZ Drainage of Left Foot, Open Approach (ICD-10-PCS; principal; 2019-09-10)
DX: A41.9 Sepsis, unspecified organism (principal); E11.40 Type 2 diabetes mellitus with diabetic neuropathy, unspecified; D69.6 Thrombocytopenia, unspecified; L03.116 Cellulitis of left lower limb; I16.0 Hypertensive urgency; S91.332A Puncture wound without foreign body, left foot, initial encounter; L02.612 Cutaneous abscess of left foot; F10.10 Alcohol abuse, uncomplicated; R05 Cough; R10.9 Unspecified abdominal pain; Z79.899 Other long term (current) drug therapy; I10 Essential (primary) hypertension; B95.5 Unspecified streptococcus as the cause of diseases classified elsewhere; B95.61 Methicillin susceptible Staphylococcus aureus infection as the cause of diseases classified elsewhere; W22.8XXA Striking against or struck by other objects, initial encounter; Y92.015 Private garage of single-family (private) house as the place of occurrence of the external cause